=== PATIENT | female | born 1940 | race Caucasian/White ===

== ENCOUNTER 2016-11-12 06:53 | Inpatient (IN) ==
[2016-11-06 11:43] LABS: Appearance,Urine CLEAR; Bilirubin,Urine NEG (NEG); Color,Urine YELLOW; Glucose,Urine (UA) NEGATIVE (NEG); Leukocyte Esterase,Urine NEG /uL (NEG); Nitrate,Urine NEG (NEG); Protein,Urine NEG (NEG); Urine Blood NEG mg/dL (<0.03); Urobilinogen,Urine NEG (NEG)
[2016-11-06 11:57] LABS: Basophils # (Auto) 0 K/mcL (0.0-0.3); Basophils % (Auto) 0.8 % (0.0-2.0); Eosinophils # (Auto) 0.1 K/mcL (0.0-0.7); Eosinophils % (Auto) 1.9 % (0.0-7.0); Granulocytes % (Auto) 52.3 % (38.0-78.0); Lymphocytes # (Auto) 2.1 K/mcL (1.5-4.8); Lymphocytes % (Auto) 34.4 % (15.5-49.0); Mean Corpuscular HGB Conc 34.2 g/dL (31.0-36.0); Mean Corpuscular Hemoglobin 31.5 pg (26.0-34.0); Monocytes # (Auto) 0.6 K/mcL (0.1-0.9); Monocytes % (Auto) 10.6 % (1.0-12.0); Platelet Count 287 K/mcL (140-440); RBC 4.61 M/mcL (4.00-5.20); Red Cell Distribution Width 14.5 % (11.5-14.5)
[2016-11-06 12:06] LABS: Blood Urea Nitrogen 11 mg/dl (8-23)
[~2016-11-12 06:53] MED LIST: ACETAMINOPHEN 500 MG TABLET PO SCH; CELECOXIB 200 MG CAPSULE PO SCH; GABAPENTIN 300 MG CAPSULE PO SCH; ceFAZolin 1 GM VIAL IV SCH; oxyCODONE 10 MG TAB.ER.12H PO SCH
[2016-11-12] MEDS ORDERED: ONDANSETRON 4 MG/2 ML VIAL IV ONE (09:00)
[2016-11-12] MEDS ORDERED: PROPOFOL 200 MG/20 ML VIAL IV ONE (09:00)
[2016-11-12] MEDS ORDERED: ROPIVACAINE HCL/PF 30 ML VIAL IJ ONE (09:00)
[2016-11-12] MEDS ORDERED: PHENYLEPHRINE 10 MG/ML VIAL IV ONE (09:00)
[2016-11-12] MEDS ORDERED: ROCURONIUM 10 MG/ML ML IV ONE (09:00)
[2016-11-12] MEDS ORDERED: ESMOLOL 100 MG/10 ML VIAL IV ONE (09:00)
[2016-11-12] MEDS ORDERED: LIDOCAINE HCL/PF 100 MG/5 ML SYRINGE IV ONE (09:00)
[2016-11-12] MEDS ORDERED: fentaNYL 250 MCG/5 ML VIAL IV ONE (09:00)
[2016-11-12] MEDS ORDERED: TRANEXAMIC ACID 1,000 MG/10 ML VIAL IV ONE (09:00)
[2016-11-12] MEDS ORDERED: GLYCOPYRROLATE 0.2 MG/ML VIAL IV ONE (09:00)
[2016-11-12] MEDS ORDERED: NEOSTIGMINE 1 MG/ML VIAL IV ONE (09:00)
[2016-11-12] MEDS ORDERED: MAGNESIUM HYDROXIDE 30 ML ORAL.SUSP PO PRN (10:04)
[2016-11-12] MEDS ORDERED: ACETAMINOPHEN 325 MG TABLET PO PRN (10:04)
[2016-11-12] MEDS ORDERED: TRANEXAMIC ACID 1,000 MG/10 ML VIAL IV SCH (10:04)
[2016-11-12] MEDS ORDERED: HYDROmorphone 2 MG/ML SYRINGE IV PRN ×2 (10:04→10:18)
[2016-11-12] MEDS ORDERED: KETOROLAC 15 MG/ML VIAL IV PRN (10:04)
[2016-11-12] MEDS ORDERED: POLYETHYLENE GLYCOL 3350 17 GM PACKET PO PRN (10:04)
[2016-11-12] MEDS ORDERED: FLEETS ADULT ENEMA PR PRN (10:04)
[2016-11-12] MEDS ORDERED: ONDANSETRON 4 MG/2 ML VIAL IV PRN ×2 (10:04→10:18)
[2016-11-12] MEDS ORDERED: BENZOCAINE/MENTHOL 1 LOZENGE PO PRN (10:04)
[2016-11-12] MEDS ORDERED: BISACODYL 10 MG SUPP.RECT PR PRN (10:04)
--- NOTE | 2016-11-12 10:13 | Brief Operative Note ---
Date of procedure: 11/12/16 Pre-op diagnosis: left shoulder rca bicep tendonopathy Post-op diagnosis: same Procedure: left revers tsa and bicep tenodesis Grafts/Implants: Yes Anesthesia: GETA Complications Description: 11/12/16 10:13 none Surgeon: Alex Araiza Emergency Communications Dispatcher: Aaron Lobo Estimated blood loss (cc): 50 Specimens Removed/Pathology: none sent Condition: stable Disposition: PACU
[2016-11-12] MEDS ORDERED: LABETALOL HCL 20 MG/4 ML SYRINGE IV PRN (10:18)
[2016-11-12] MEDS ORDERED: IPRATROPIUM/ALBUTEROL 3 ML AMPUL.NEB NEB PRN (10:18)
[2016-11-12] MEDS ORDERED: fentaNYL 100 MCG/2 ML VIAL IV PRN (10:18)
[2016-11-12] MEDS ORDERED: KETOROLAC 15 MG/ML VIAL IV ONE (10:18)
[2016-11-12] MEDS ORDERED: MEPERIDINE 25 MG/ML SYRINGE IV PRN (10:18)
[2016-11-12] MEDS ORDERED: METHOCARBAMOL 1,000 MG/10 ML VIAL IV PRN (10:18)
--- NOTE | 2016-11-12 10:29 | Operative Note ---
DATE OF OPERATION: 11/12/2016 PREOPERATIVE DIAGNOSIS: Left shoulder rotator cuff arthropathy and biceps tendinopathy. POSTOPERATIVE DIAGNOSIS: Left shoulder rotator cuff arthropathy and biceps tendinopathy. PROCEDURE: Left reverse total shoulder arthroplasty, cementless components with a biceps tenodesis of the left shoulder. SURGEON: Alex Araiza MD EXECUTIVE DIRECTOR OF NURSING: Aaron Lobo PA-C ANESTHESIA: General LMA anesthesia. COMPLICATIONS: None. ESTIMATED BLOOD LOSS: About 50 mL IMPLANTS: A size 9 stem, 36 mm eccentric glenosphere with 6 mm of offset. COMPLICATIONS: None. DESCRIPTION OF PROCEDURE: Patient brought to the operating room and put to sleep with general LMA anesthesia. Once asleep, the patient had the left shoulder sterilely prepped and draped in the usual sterile fashion. Once we confirmed the operative site, preop antibiotics given and tranexamic acid given, we made a deltopectoral approach to the shoulder. Retracting the cephalic vein laterally, we exposed the anterior shoulder and released the anterior portion of the capsule and subscap. We dislocated the humeral head and made the neck cut at surgical neck region and released the remnants of the biceps tendon which had some tendinopathy. We subluxed the head posteriorly and exposed the glenoid. We performed a 360 degree capsulotomy around the glenoid and then reamed centrally with a 10 degree tilt. We placed the 36 reamer, placed the central screw with the metaglene with excellent fixation. We placed 3 additional screws 20, 20 and 28. We irrigated thoroughly and then placed 36 mm glenosphere which is 6 mm of offset and 2 mm of eccentricity. Once this was tapped into place and secured we irrigated thoroughly. We then broached and reamed up to the size 9, trialed a size 9 stem and a standard thickness poly. Once we countersunk the stem to give the perfect fit, this fit very nicely. We dislocated the humerus and irrigated thoroughly. We then implanted a size 9 stem with a standard thickness poly. This was reduced and irrigated thoroughly. We then irrigated the soft tissues, closed the deltopectoral interval with #2 Vicryl and closed the skin with 2-0 Vicryl and adhesive closure. The patient tolerated this well without complication. Donjoy sling was fitted and given. LIZA:[email or web address] Job ID: [id number] Doc ID: [id number] Alex Araiza MD
[2016-11-12] MEDS ORDERED: LACTATED RINGERS 1,000 ML IV SCH (10:30)
[2016-11-12] MEDS ORDERED: GENTAMICIN SULFATE 800 MG/20 ML VIAL IR ONE (10:47)
--- NOTE | 2016-11-12 11:09 | XRay Report ---
CLINICAL INFORMATION: Postsurgical follow-up TECHNIQUE: AP and Y view of the left shoulder COMPARISON: Preoperative evaluation dated 11/14/2015 FINDINGS: Status post left reverse shoulder arthroplasty. Previous resection of the distal left clavicle. Normal postsurgical alignment. IMPRESSION: Left reverse shoulder arthroplasty. Interpreted and Authenticated by: Dhruv Hines 11/12/16
[2016-11-12] MEDS ORDERED: ERGOCALCIFEROL (VITAMIN D2) 50,000 UNIT CAPSULE PO SCH (12:00)
[2016-11-12] MEDS: 0.45 % SODIUM CHLORIDE 1,000 ML IV SCH ×2 (13:00→23:14)
[2016-11-12] MEDS ORDERED: PROMETHAZINE 25 MG/ML VIAL IV PRN (15:18)
[2016-11-12] MEDS: 0.9 % SODIUM CHLORIDE 10 ML SYRINGE IV SCH ×2 (15:30→23:14)
[2016-11-12] MEDS: GABAPENTIN 300 MG CAPSULE PO SCH ×3 (15:34→20:33)
[2016-11-12] MEDS: ceFAZolin 1 GM VIAL IV SCH (16:48)
[2016-11-12] MEDS: DOCUSATE SODIUM 100 MG CAPSULE PO SCH (20:32)
[2016-11-12] MEDS ORDERED: TEMAZEPAM 15 MG CAPSULE PO PRN (21:00)
[2016-11-12] MEDS ORDERED: SENNOSIDES 1 TABLET PO SCH (21:00)
[2016-11-13] MEDS: HYDROcodone/APAP 10/325MG TABLET PO PRN ×3 (01:18→09:27)
[2016-11-13] MEDS: ceFAZolin 1 GM VIAL IV SCH (01:18)
[2016-11-13] MEDS: 0.9 % SODIUM CHLORIDE 10 ML SYRINGE IV SCH (05:22)
[2016-11-13] MEDS: 0.45 % SODIUM CHLORIDE 1,000 ML IV SCH (05:23)
[2016-11-13] MEDS ORDERED: LEVOTHYROXINE SODIUM 112 MCG TABLET PO SCH (07:30)
--- NOTE | 2016-11-13 07:34 | Orthopedic Progress Note ---
Subjective Patient information: Note initiated : 11/13/16 at 7:33 am Service Date, if different from initiated Date: [] Patient: Arleth Tran 76 y/o F admitted on 11/12/16 for Left Reverse Total Shoulder Arthroplasty with. Chief Complaint: [Pt is stable this morning on post operative day 1 without any significant concerns or complaints. Patients vital signs have remained stable. Patients dressing is dry and exhibits a grossly intact neurovascular and neuromotor exam. Patients 10 point ROS is otherwise negative. ] Objective Vital signs: Vital Signs Temp Pulse Resp BP BP Pulse Ox 11/13/16 04:00 98.8 F 79 20 118/75 91 11/13/16 00:00 98.3 F 79 20 117/74 92 11/12/16 20:00 96 11/12/16 19:54 97.3 F L 60 20 128/66 96 11/12/16 13:15 62 164/83 95 11/12/16 13:00 90 11/12/16 12:12 60 148/71 93 11/12/16 11:59 60 130/71 93 11/12/16 11:54 58 L 145/70 93 11/12/16 11:42 56 L 168/93 93 11/12/16 11:38 96.6 F L 57 L 168/95 95 11/12/16 11:20 96.7 F L 56 L 17 152/78 96 11/12/16 11:16 96.6 F L 63 18 152/78 99 11/12/16 11:05 63 18 152/78 99 11/12/16 10:48 71 15 161/77 99 11/12/16 10:35 96.6 F L 81 18 191/79 95 11/12/16 07:36 98.6 F 74 16 169/92 96 Intake and Output 11/12/16 11/13/16 11/13/16 21:59 05:59 13:59 Intake Total 600 / 600 150 / 150 Output Total 1275 / 1275 1575 / 1575 250 / 250 Balance -675 / -675 -1425 / -1425 -250 / -250 Intake: Oral 600 / 600 150 / 150 Output: Void Amount 1275 / 1275 1575 / 1575 250 / 250 Other: Weight 207 lb Intake & Output: Intake & Output 11/12/16 11/13/16 11/13/16 21:59 05:59 13:59 Intake Total 600 / 600 150 / 150 Output Total 1275 / 1275 1575 / 1575 250 / 250 Balance -675 / -675 -1425 / -1425 -250 / -250 Weight 207 lb Intake: Oral 600 / 600 150 / 150 Output: Void Amount 1275 / 1275 1575 / 1575 250 / 250 Incision clean and dry: Yes Dressing: Yes clean, Yes dry Weight bearing status: full Neurological exam IM: Yes motor sensory intact, Yes neurovascular intact Extremities exam IM: Yes neurovascular intact - Labs CBC & BMP: 11/06/16 10:48 11/06/16 10:48 Labs: 11/06/16 10:48 Hgb 14.5 Hct 42.4 Assessment and Plan (1) Hx of total shoulder replacement Patient has been educated regarding wound care and dressings, follow up recommendations, and medication use. We will f/u with the patient within 2-3 weeks for wound check. Status: Acute
--- NOTE | 2016-11-13 07:36 | Discharge Summary ---
Ortho Discharge - TSA - Patient Instructions Diet: Regular Diet Activity: activity as tolerated, weight bearing as tolerated Total Shoulder Protocol: Leave immobilizer in place except for bathing and ROM. Abduction pillow. Continue to wear sling until seen by physician. Codman Pendulum : These exercises use momentum produced by your body to move your shoulder joint. Bend your knees and shift your weight to your front leg, then back, allowing your arm to swing in the same directions. Using the same technique, alternately shift your weight between your right and left legs, allowing your arm to swing from side to side. These exercises are also performed in counterclockwise and clockwise circular motions. Typically these exercises are performed several times per day, for a set number repetitions or minutes, such as 20 times in a row or 5 minutes at a time. Dressing Care: May shower in 2 days Patient Education: Shoulder Arthroscopy (DC) Additional Instructions: Do the exercises at home that physical therapy gave you. Take your prescription, photo ID, insurance cards, and current medication list with you to your first physical therapy appointment. 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 Weight bearing as tolerated. Keep incision clean and dry. If you have Dermabond (a dressing with a mesh-like appearance), leave open to air. You may start showering on post op day #2. The Dermabond dressing can get wet, do not scrub dressing. Pat dry. To avoid constipation while taking any narcotic pain medication, take an over the counter stool softener/laxative. Ice will help with pain and swelling. Call your physician for fevers above 100.5 or pain not controlled by medication. Your prescriptions are with your discharge information. Some medications were electronically transmitted to your pharmacy of choice. - Problem Maintenance (1) Hx of total shoulder replacement Status: Acute - Follow Up Plan Follow Up Appointments: Alex Araiza MD [Physician] - 11/27/16 1:40 pm Disposition: Home, Self-Care Prognosis: Good Rehab Potential: Good I certify that the patient requires SNF services: No Overall status at discharge: patient is progressing back to baseline - Orders For Discharge Prescriptions: Docusate Sodium [Colace] 100 mg PO BID #60 capsule HYDROcodone/APAP 10/325MG [Reva 10/325Mg] 1 - 2 tab PO Q4HP PRN #75 tablet PRN Reason: Pain
[2016-11-13] MEDS ORDERED: MULTIVIT,THER IRON,CA,FA & MIN 1 TABLET PO SCH (09:00)
[2016-11-13] MEDS: DOCUSATE SODIUM 100 MG CAPSULE PO SCH (09:18)
[2016-11-13] MEDS: GABAPENTIN 300 MG CAPSULE PO SCH (09:19)
== END 2016-11-13 11:00 | disposition home or self-care (01) | DRG 483 ==
LOC: MEDSUR 06:53
PROVIDERS: ADMIT Orthopaedic Surgery; ATTEND Orthopaedic Surgery

== ENCOUNTER 2017-07-22 06:27 | Inpatient (IN) ==
[2017-07-17 11:52] LABS: Appearance,Urine CLEAR; Bilirubin,Urine NEG (NEG); Color,Urine YELLOW; Glucose,Urine (UA) NEGATIVE (NEG); Leukocyte Esterase,Urine NEG /uL (NEG); Nitrate,Urine NEG (NEG); Protein,Urine NEG (NEG); Specific Gravity,Urine 1.017 (1.000-1.035); Urine Blood NEG mg/dL (<0.03); Urobilinogen,Urine NEG (NEG)
[2017-07-17 12:18] LABS: Blood Urea Nitrogen 17 mg/dl (8-23)
[2017-07-17 12:42] LABS: Basophils # (Auto) 0 K/mcL (0.0-0.3); Basophils % (Auto) 0.5 % (0.0-2.0); Eosinophils # (Auto) 0.2 K/mcL (0.0-0.7); Eosinophils % (Auto) 2.6 % (0.0-7.0); Granulocytes % (Auto) 58.4 % (38.0-78.0); Lymphocytes # (Auto) 2.1 K/mcL (1.5-4.8); Mean Corpuscular HGB Conc 33.7 g/dL (31.0-36.0); Monocytes # (Auto) 0.6 K/mcL (0.1-0.9); Monocytes % (Auto) 8.5 % (1.0-12.0); Platelet Count 310 K/mcL (140-440); RBC 4.86 M/mcL (4.00-5.20); Red Cell Distribution Width 13.6 % (11.5-14.5)
[~2017-07-22 06:27] MED LIST changes: -GABAPENTIN 300 MG CAPSULE PO SCH; +PREGABALIN 75 MG CAPSULE PO SCH
[2017-07-22] MEDS ORDERED: KETAMINE 100 MG/ML ML IV ONE (08:15)
[2017-07-22] MEDS ORDERED: PHENYLEPHRINE 10 MG/ML VIAL IV ONE (08:15)
[2017-07-22] MEDS ORDERED: SUCCINYLCHOLINE 20 MG/ML ML IV ONE (08:15)
[2017-07-22] MEDS ORDERED: fentaNYL 100 MCG/2 ML VIAL IV ONE (08:15)
[2017-07-22] MEDS ORDERED: MIDAZOLAM 2 MG/2 ML VIAL IV ONE (08:15)
[2017-07-22] MEDS ORDERED: LIDOCAINE HCL/PF 100 MG/5 ML SYRINGE IV ONE (08:15)
[2017-07-22] MEDS ORDERED: TRANEXAMIC ACID 1,000 MG/10 ML VIAL IV ONE ×4 (08:15→10:57)
[2017-07-22] MEDS ORDERED: GLYCOPYRROLATE 0.2 MG/ML VIAL IV ONE (08:15)
[2017-07-22] MEDS ORDERED: BUPIVACAINE W/EPI 0.5% 50 ML VIAL IJ ONE (08:15)
[2017-07-22] MEDS ORDERED: PROPOFOL 200 MG/20 ML VIAL IV ONE (08:15)
[2017-07-22] MEDS ORDERED: LIDOCAINE W/EPI 2% 20 ML VIAL INJ ONE (08:15)
[2017-07-22] MEDS ORDERED: ONDANSETRON 4 MG/2 ML VIAL IV ONE (08:15)
[2017-07-22] MEDS ORDERED: GENTAMICIN SULFATE 800 MG/20 ML VIAL IR ONE (09:00)
[2017-07-22] MEDS ORDERED: METHOCARBAMOL 1,000 MG/10 ML VIAL IV PRN (09:04)
[2017-07-22] MEDS ORDERED: PROMETHAZINE 25 MG/ML VIAL IV PRN (09:04)
[2017-07-22] MEDS ORDERED: ONDANSETRON 4 MG/2 ML VIAL IV PRN ×2 (09:04→10:49)
[2017-07-22] MEDS ORDERED: fentaNYL 100 MCG/2 ML VIAL IV PRN (09:04)
[2017-07-22] MEDS ORDERED: MEPERIDINE 25 MG/ML SYRINGE IV PRN (09:04)
[2017-07-22] MEDS ORDERED: IPRATROPIUM/ALBUTEROL 3 ML AMPUL.NEB NEB PRN (09:04)
[2017-07-22] MEDS ORDERED: LACTATED RINGERS 1,000 ML IV SCH (09:15)
--- NOTE | 2017-07-22 09:21 | Brief Operative Note ---
Date of procedure: 07/22/17 Pre-op diagnosis: right shoulder rca and bicep tendonopathy Post-op diagnosis: same Procedure: right reverse tsa and bicep tenodesis Grafts/Implants: Yes Anesthesia: GETA Complications Description: 07/22/17 09:21 none Surgeon: Alex Araiza Recordist: Aaron Lobo Estimated blood loss (cc): 100 Specimens Removed/Pathology: none sent Condition: stable Disposition: PACU
--- NOTE | 2017-07-22 10:05 | Operative Note ---
DATE OF OPERATION: 07/22/2017 PREOPERATIVE DIAGNOSES: Right shoulder rotator cuff arthropathy and biceps tendinopathy. POSTOPERATIVE DIAGNOSES: Right shoulder rotator cuff arthropathy and biceps tendinopathy. PROCEDURE: Right reverse total shoulder with biceps tenodesis. SURGEON: Alex Araiza M.D. TAX ACCOUNTING MANAGER: Aaron Lobo PA-C. ANESTHESIA: General LMA anesthesia. ESTIMATED BLOOD LOSS: 50 mL to 100 mL. DESCRIPTION OF PROCEDURE: The patient was brought to the operating room and put to sleep with general LMA anesthesia. Once asleep, the patient had the right shoulder sterilely prepped and draped in the usual sterile fashion and sat in a beach chair position. Time out was performed. We confirmed this with a time out, initials, consent form and x-rays. Once confirmed, preop antibiotics and tranexamic acid had been given. Once done, we then made a deltopectoral approach from the front of the shoulder, dissected through the deltopectoral interval and identified the subscap and conjoined tendon and retracted this medially. We dislocated the humeral head and made our neck cut at 30 degrees of retroversion. Once done, the bony fragment was removed. A protective plate was placed, and we subluxed the humeral shaft posteriorly and inferiorly with a retractor. Once done, we then released the capsule 360 degrees around the shoulder, removed the remnants of the biceps tendon, placed a pin centrally in the glenoid and 10 degrees of inclination. We then reamed to the size 36, placed a metaglene with a 24 mm central screw. Then 16, 16 and 30 mm screws were also placed to lock this into place. A 36 mm glenosphere was placed with 2 mm of offset. We irrigated thoroughly and then prepared the humerus. It was broached up to a size 9 stem. We trialed the 9 with a 4 mm poly or standard poly. This fit very nicely. We implanted a 9 stem with a 4 poly, 36 mm liner, and this was reduced. Excellent stability, full range of motion achieved. We irrigated thoroughly. We did not re-repair the subscap because of restriction of motion it would have caused. Biceps tenodesis to the pectoralis major was performed with two #2 Ethibond stitches through the biceps. We irrigated thoroughly and repaired the cephalic vein with 2-0 Vicryl which was tied off for bleeding. We then closed the skin with 2-0 Vicryl and glue was placed on the skin. This seemed to give complete seal. We placed a sterile bandage. A Donjoy sling was fitted and given at the end of the case. The patient tolerated this well. There was no complication. RBH:jluis Job ID: [id number] Doc ID: [id number] Alex Araiza MD
[2017-07-22] MEDS ORDERED: TEMAZEPAM 15 MG CAPSULE PO PRN (10:49)
[2017-07-22] MEDS ORDERED: MAGNESIUM HYDROXIDE 30 ML ORAL.SUSP PO PRN (10:49)
[2017-07-22] MEDS ORDERED: ACETAMINOPHEN 325 MG TABLET PO PRN (10:49)
[2017-07-22] MEDS ORDERED: POLYETHYLENE GLYCOL 3350 17 GM PACKET PO PRN (10:49)
[2017-07-22] MEDS ORDERED: HYDROcodone/APAP 10/325MG TABLET PO PRN (10:49)
[2017-07-22] MEDS ORDERED: FLEETS ADULT ENEMA PR PRN (10:49)
[2017-07-22] MEDS ORDERED: KETOROLAC 15 MG/ML VIAL IV PRN (10:49)
[2017-07-22] MEDS ORDERED: HYDROmorphone 2 MG/ML SYRINGE IV PRN (10:49)
[2017-07-22] MEDS ORDERED: BISACODYL 10 MG SUPP.RECT PR PRN (10:49)
[2017-07-22] MEDS: 0.45 % SODIUM CHLORIDE 1,000 ML IV SCH ×2 (11:04→21:16)
--- NOTE | 2017-07-22 11:54 | XRay Report ---
CLINICAL INFORMATION: Post-OP Total Shoulder COMPARISON: None. FINDINGS: Right total shoulder prostheses is anatomically aligned. No osseous abnormality. Soft tissues swelling seen as expected. IMPRESSION: Negative Interpreted and Authenticated by: Dhruv Boo 07/22/17
[2017-07-22] MEDS: 0.9 % SODIUM CHLORIDE 10 ML SYRINGE IV SCH ×2 (13:24→21:16)
[2017-07-22] MEDS: ceFAZolin 1 GM VIAL IV SCH (16:34)
[2017-07-22] MEDS: BENZOCAINE/MENTHOL 1 LOZENGE PO PRN ×2 (19:49→22:41)
[2017-07-22] MEDS: DOCUSATE SODIUM 100 MG CAPSULE PO SCH (20:20)
[2017-07-22] MEDS ORDERED: SENNOSIDES 1 TABLET PO SCH (21:00)
[2017-07-23] MEDS: ceFAZolin 1 GM VIAL IV SCH (00:07)
[2017-07-23] MEDS: 0.9 % SODIUM CHLORIDE 10 ML SYRINGE IV SCH (04:57)
[2017-07-23] MEDS: 0.45 % SODIUM CHLORIDE 1,000 ML IV SCH (07:05)
[2017-07-23] MEDS ORDERED: LEVOTHYROXINE SODIUM 112 MCG TABLET PO SCH (07:30)
--- NOTE | 2017-07-23 07:30 | Orthopedic Progress Note ---
Subjective Patient information: Note initiated : 07/23/17 at 7:29 am Service Date, if different from initiated Date: [] Patient: Arleth Tran 76 y/o F admitted on 07/22/17 for Right Reverse Total Shoulder Arthroplasty with . Chief Complaint: [Pt is stable this morning on post operative day 1 without any significant concerns or complaints. Patients vital signs have remained stable. Patients dressing is dry and is grossly instact from a neurovascular and motor standpoint. Patients 10 point ROS is otherwise negative. ] Objective Vital signs: Vital Signs Temp Pulse Resp BP BP Pulse Ox 07/23/17 06:54 98.5 F 18 148/69 92 07/23/17 03:05 97.8 F 93 H 20 150/67 95 07/23/17 00:00 97.9 F 71 22 165/79 92 07/22/17 19:51 98.4 F 61 24 H 163/79 94 07/22/17 15:39 97.3 F 18 128/64 95 07/22/17 13:45 130/63 97 07/22/17 12:45 154/86 95 07/22/17 12:15 173/70 93 07/22/17 11:45 56 L 20 159/62 94 07/22/17 11:30 48 L 20 157/75 94 07/22/17 11:15 64 16 157/80 94 07/22/17 11:00 97.4 F 63 20 157/65 94 07/22/17 10:43 97.8 F 13 134/59 95 07/22/17 10:25 13 137/52 95 07/22/17 10:10 15 143/43 143/43 96 07/22/17 09:55 13 132/56 96 07/22/17 09:38 97.7 F 14 138/66 95 Intake and Output 07/22/17 07/23/17 07/23/17 21:59 05:59 13:59 Intake Total 350 / 350 Output Total 1000 / 1000 1150 / 1150 Balance -1000 / -1000 -800 / -800 Intake: Oral 350 / 350 Output: Void Amount 1000 / 1000 1150 / 1150 Other: Weight 207 lb 8 oz Intake & Output: Intake & Output 07/22/17 07/23/17 07/23/17 21:59 05:59 13:59 Intake Total 350 / 350 Output Total 1000 / 1000 1150 / 1150 Balance -1000 / -1000 -800 / -800 Weight 207 lb 8 oz Intake: Oral 350 / 350 Output: Void Amount 1000 / 1000 1150 / 1150 Incision: Yes healing Incision clean and dry: Yes Dressing: Yes clean, Yes dry Weight bearing status: full Neurological exam IM: Yes motor sensory intact, Yes neurovascular intact Extremities exam IM: Yes neurovascular intact - Labs CBC & BMP: 07/17/17 10:18 07/17/17 10:18 Labs: Orthopedic Labs 07/17/17 10:18 PT 13.0 INR 1.0 APTT 28 07/17/17 10:18 Hgb 14.6 Hct 43.3 Assessment and Plan (1) Hx of total shoulder replacement The patient has been educated regarding dressing care, Physical Therapy recommendations, home exercises, restrictions, and follow up appointments. The patient has had all necessary DME prescribed. The patient has remained stable during their hospital course. The patient was discharge with a stable exam. Leave Dermabond patch intact until followup Status: Chronic
--- NOTE | 2017-07-23 07:33 | Discharge Summary ---
Ortho Discharge - TSA - Patient Instructions Diet: Regular Diet Activity: activity as tolerated, weight bearing as tolerated Total Shoulder Protocol: Leave immobilizer in place except for bathing and ROM. Abduction pillow. Continue to wear sling until seen by physician. Codman Pendulum : These exercises use momentum produced by your body to move your shoulder joint. Bend your knees and shift your weight to your front leg, then back, allowing your arm to swing in the same directions. Using the same technique, alternately shift your weight between your right and left legs, allowing your arm to swing from side to side. These exercises are also performed in counterclockwise and clockwise circular motions. Typically these exercises are performed several times per day, for a set number repetitions or minutes, such as 20 times in a row or 5 minutes at a time. Dressing Care: May shower in 2 days - Problem Maintenance (1) Hx of total shoulder replacement Status: Chronic - Follow Up Plan Disposition: Home, Self-Care Prognosis: Good Rehab Potential: Good I certify that the patient requires SNF services: No Overall status at discharge: patient is progressing back to baseline - Orders For Discharge Prescriptions: Docusate Sodium [Colace] 100 mg PO BID #60 cap HYDROcodone/APAP 10/325MG [Gardena 10/325Mg] 1 - 2 tab PO Q4HP PRN #75 tab PRN Reason: Pain Level 3-6
[2017-07-23] MEDS: DOCUSATE SODIUM 100 MG CAPSULE PO SCH (08:46)
[2017-07-23] MEDS ORDERED: IMIPRAMINE 25 MG TABLET PO SCH (09:00)
[2017-07-23] MEDS ORDERED: LISINOPRIL 5 MG TABLET PO SCH (09:00)
== END 2017-07-23 09:40 | disposition home or self-care (01) | DRG 508 ==
LOC: MEDSUR 06:27
PROVIDERS: ADMIT Orthopaedic Surgery; ATTEND Orthopaedic Surgery

== ENCOUNTER 2018-09-22 08:48 | Inpatient (IN) ==
[2018-09-16 14:02] LABS: Appearance,Urine CLEAR; Bilirubin,Urine NEG (NEG); Color,Urine YELLOW; Glucose,Urine (UA) NEGATIVE (NEG); Leukocyte Esterase,Urine NEG /uL (NEG); Protein,Urine NEG (NEG); Specific Gravity,Urine 1.019 (1.000-1.035); Urine Blood NEG mg/dL (<0.03); Urobilinogen,Urine NEG (NEG)
[2018-09-16 14:50] LABS: Basophils # (Auto) 0 K/mcL (0.0-0.3); Basophils % (Auto) 0.6 % (0.0-2.0); Eosinophils # (Auto) 0.4 K/mcL (0.0-0.7); Eosinophils % (Auto) 4.5 % (0.0-7.0); Granulocytes % (Auto) 61.7 % (38.0-78.0); Lymphocytes # (Auto) 1.9 K/mcL (1.5-4.8); Lymphocytes % (Auto) 24.2 % (15.5-49.0); Mean Cell Volume 87.5 fL (80.0-100.0); Monocytes # (Auto) 0.7 K/mcL (0.1-0.9); Platelet Count 295 K/mcL (140-440); RBC 4.82 M/mcL (4.00-5.20); Red Cell Distribution Width 13.8 % (11.5-14.5)
[2018-09-16 14:58] LABS: Blood Urea Nitrogen 18 mg/dl (8-23)
[2018-09-16 15:24] LABS: Estimated Average Glucose(eAG) 120 mg/dL; Hemoglobin A1C 5.8 % HGB (4.0-6.0)
[~2018-09-22 08:48] MED LIST changes: +0.9 % SODIUM CHLORIDE 9 ML, KETOROLAC 30 MG, ROPIVACAINE HCL/PF 49.5 ML, EPINEPHrine 0.... IJ SCH
[2018-09-22] MEDS ORDERED: GENTAMICIN SULFATE 800 MG/20 ML VIAL IR ONE (10:07)
[2018-09-22] MEDS ORDERED: ONDANSETRON 4 MG/2 ML VIAL IV ONE (11:10)
[2018-09-22] MEDS ORDERED: DEXAMETHASONE 10 MG/ML VIAL IV ONE (11:10)
[2018-09-22] MEDS ORDERED: PROPOFOL 200 MG/20 ML VIAL IV ONE (11:10)
[2018-09-22] MEDS ORDERED: ROPIVACAINE HCL/PF 20 ML VIAL IJ ONE (11:10)
[2018-09-22] MEDS ORDERED: KETAMINE 100 MG/ML ML IV ONE (11:10)
[2018-09-22] MEDS ORDERED: LIDOCAINE HCL/PF 100 MG/5 ML SYRINGE IV ONE (11:10)
[2018-09-22] MEDS ORDERED: ePHEDrine 50 MG/ML AMPUL IV ONE (11:10)
[2018-09-22] MEDS ORDERED: GLYCOPYRROLATE 0.2 MG/ML VIAL IV ONE (11:10)
[2018-09-22] MEDS ORDERED: TRANEXAMIC ACID 1,000 MG/10 ML VIAL IV ONE (11:10)
[2018-09-22] MEDS ORDERED: MIDAZOLAM 5 MG/5 ML VIAL IV ONE (11:10)
[2018-09-22] MEDS ORDERED: PHENYLEPHRINE 10 MG/ML VIAL IV ONE (11:10)
[2018-09-22] MEDS ORDERED: fentaNYL 100 MCG/2 ML VIAL IV PRN (11:33)
[2018-09-22] MEDS ORDERED: IPRATROPIUM/ALBUTEROL 3 ML AMPUL.NEB NEB PRN (11:33)
[2018-09-22] MEDS ORDERED: FLUMAZENIL 0.1 MG/ML ML IV PRN (11:33)
[2018-09-22] MEDS ORDERED: ONDANSETRON 4 MG/2 ML VIAL IV PRN ×2 (11:33→12:34)
[2018-09-22] MEDS ORDERED: KETOROLAC 15 MG/ML VIAL IV PRN (11:33)
[2018-09-22] MEDS ORDERED: METHOCARBAMOL 1,000 MG/10 ML VIAL IV PRN (11:33)
[2018-09-22] MEDS ORDERED: NALOXONE HCL 0.4 MG/ML VIAL IV PRN (11:33)
[2018-09-22] MEDS ORDERED: LACTATED RINGERS 250 ML IV PRN (11:33)
[2018-09-22] MEDS ORDERED: MEPERIDINE 25 MG/ML SYRINGE IV PRN (11:33)
[2018-09-22] MEDS ORDERED: BENZOCAINE/MENTHOL 1 LOZENGE PO PRN (11:33)
[2018-09-22] MEDS ORDERED: LACTATED RINGERS 1,000 ML IV SCH (11:45)
[2018-09-22] MEDS ORDERED: BISACODYL 10 MG SUPP.RECT PR PRN (12:34)
[2018-09-22] MEDS ORDERED: TRANEXAMIC ACID 1,000 MG/10 ML VIAL IV SCH (12:34)
[2018-09-22] MEDS ORDERED: POLYETHYLENE GLYCOL 3350 17 GM PACKET PO PRN (12:34)
[2018-09-22] MEDS ORDERED: FLEETS ADULT ENEMA PR PRN (12:34)
[2018-09-22] MEDS ORDERED: HYDROmorphone 2 MG/ML VIAL IV PRN (12:34)
[2018-09-22] MEDS ORDERED: ACETAMINOPHEN 325 MG TABLET PO PRN (12:34)
[2018-09-22] MEDS ORDERED: MAGNESIUM HYDROXIDE 30 ML ORAL.SUSP PO PRN (12:34)
--- NOTE | 2018-09-22 12:38 | Brief Operative Note ---
Date of procedure: 09/22/18 Pre-op diagnosis: right knee djd severe Post-op diagnosis: same Procedure: right tka cemented Grafts/Implants: Yes Anesthesia: GETA Complications: none Surgeon: Alex Araiza Dinkey Engine Firer/Fireman: Parth Pain[employer] Estimated blood loss (cc): 20 Tourniquet Time (Minutes): 40 Specimens Removed/Pathology: none sent Condition: stable Disposition: PACU
[2018-09-22] MEDS ORDERED: IBANDRONATE SODIUM 150 MG PO SCH (12:45)
--- NOTE | 2018-09-22 12:55 | Operative Note ---
DATE OF OPERATION: 09/22/2018 PREOPERATIVE DIAGNOSIS: Right knee degenerative arthritis. POSTOPERATIVE DIAGNOSIS: Right knee degenerative arthritis. PROCEDURE: Right total knee arthroplasty using ODC. COMPLICATIONS: None. IMPLANTS: Size 3 tibia, size 3 femoral component with 31 mm patellar button. These were cemented components. SURGEON: Alex Araiza MD AERODYNAMIC CONSULTANT: Parth Pain[employer] PA-C ANESTHESIA: General LMA anesthesia. ESTIMATED BLOOD LOSS: About 20 mL TOURNIQUET TIME: 40 minutes at 250 pounds of pressure. DESCRIPTION OF PROCEDURE: The patient was brought to the operating room and put to sleep with general LMA anesthesia. A timeout had been performed confirming the operative site to be the right leg. Once confirmed, we then sterilely prepped and draped the right lower extremity. We exsanguinated the leg and inflated to 250 pounds of pressure. We made a midline incision, mid vastus approach. We exposed the joint and showed severe arthritis of the patellofemoral joint and the medial compartment. At this point, it noted about 10 degrees of flexion contracture. We proceeded with intramedullary guide rods and made our femoral distal cut at 9 mm of thickness and 5 degrees of valgus, sized the knee to a size 3 and made our anterior and posterior and chamfer cuts. Tibia was also cut at 8 mm below the least involved area which was cut. We released the ACL and removed the remnants of the meniscus and all spurs were removed. We then tapped into place the tibial baseplate. Once done, then the femoral component was trialled with a box cut. These fit very well with a 9 mm poly and then we were able to resurface the patella, measured initially worn patella down to 18 mm. This was cut to 12 mm and trialed a size 31 mm patellar button. This fit very nicely. We then cemented into place of the above-mentioned sizes with a posterior stabilized design. This gave good rollback, good motion, equally balanced in flexion and extension throughout the arc of motion. We irrigated thoroughly and kept the knee at 45 degrees until cement was dry, closed the mid vastus approach with #1 Stratafix x2, closed the skin with 2-0 Vicryl and winifred. The patient tolerated this well. There was no complication. Tourniquet deflated from 250 pounds of pressure at approximately 40 minutes. LIZA:nino Job ID: [id number] Doc ID: [id number] Alex Araiza MD
--- NOTE | 2018-09-22 13:35 | XRay Report ---
CLINICAL INFORMATION: Postsurgical follow-up TECHNIQUE: Portable AP and crosstable lateral right knee COMPARISON: None. FINDINGS: Status post right total knee arthroplasty. Femoral and tibial components are in anatomic positions. There is mild postsurgical soft tissue and intra-articular gas. There are skin winifred anteriorly IMPRESSION: Status post right total knee arthroplasty Interpreted and Authenticated by: Dhruv Hines 09/22/18
[2018-09-22] MEDS: 0.45 % SODIUM CHLORIDE 1,000 ML IV SCH ×2 (13:38→22:23)
[2018-09-22] MEDS: 0.9 % SODIUM CHLORIDE 10 ML SYRINGE IV SCH ×2 (13:40→20:07)
[2018-09-22] MEDS: oxyCODONE/APAP 5/325MG TABLET PO PRN ×2 (16:17→21:38)
[2018-09-22] MEDS: metFORMIN 500 MG TABLET PO SCH (17:06)
[2018-09-22] MEDS: KETOROLAC 15 MG/ML VIAL IV SCH (17:06)
[2018-09-22] MEDS: ASPIRIN 325 MG ENTERIC COATED TABLET PO SCH (20:04)
[2018-09-22] MEDS: BENZOCAINE/MENTHOL 1 LOZENGE PO PRN ×2 (20:04→22:16)
[2018-09-22] MEDS: ceFAZolin 1 GM VIAL IV SCH (20:04)
[2018-09-22] MEDS: DOCUSATE SODIUM 100 MG CAPSULE PO SCH (20:04)
[2018-09-22] MEDS ORDERED: SENNOSIDES 1 TABLET PO SCH (21:00)
[2018-09-22] MEDS ORDERED: GABAPENTIN 100 MG CAPSULE PO SCH (21:00)
[2018-09-22] MEDS ORDERED: TEMAZEPAM 15 MG CAPSULE PO PRN (21:00)
[2018-09-23] MEDS: KETOROLAC 15 MG/ML VIAL IV SCH ×2 (00:20→05:45)
[2018-09-23] MEDS: 0.45 % SODIUM CHLORIDE 1,000 ML IV SCH ×2 (00:20→09:41)
[2018-09-23] MEDS: oxyCODONE/APAP 5/325MG TABLET PO PRN ×3 (01:45→11:16)
[2018-09-23] MEDS: 0.9 % SODIUM CHLORIDE 10 ML SYRINGE IV SCH (04:30)
[2018-09-23] MEDS: ceFAZolin 1 GM VIAL IV SCH (04:30)
[2018-09-23] MEDS: DOCUSATE SODIUM 100 MG CAPSULE PO SCH (07:08)
[2018-09-23] MEDS: metFORMIN 500 MG TABLET PO SCH (07:08)
[2018-09-23] MEDS: ASPIRIN 325 MG ENTERIC COATED TABLET PO SCH (07:08)
[2018-09-23] MEDS: BENZOCAINE/MENTHOL 1 LOZENGE PO PRN (07:11)
[2018-09-23] MEDS ORDERED: LEVOTHYROXINE SODIUM 112 MCG TABLET PO SCH (07:30)
--- NOTE | 2018-09-23 07:55 | Orthopedic Progress Note ---
Subjective Patient information: Note initiated : 09/23/18 at 7:54 am Service Date, if different from initiated Date: [] Patient: Arleth Tran 77 y/o F admitted on 09/22/18 for Right Total Knee Arthroplasty. Chief Complaint: [minimal paind and nvi] Objective Vital signs: Vital Signs Temp Pulse Resp BP Pulse Ox 09/23/18 04:36 97.5 F 76 16 137/66 90 09/22/18 23:59 98.2 F 60 16 140/68 91 09/22/18 19:52 16 94 09/22/18 19:24 97.9 F 57 L 16 127/65 91 09/22/18 17:43 94 09/22/18 14:45 153/91 93 09/22/18 14:29 152/85 89 L 09/22/18 14:14 124/65 89 L 09/22/18 14:04 92 09/22/18 13:59 154/93 90 09/22/18 13:40 75 16 149/82 92 09/22/18 13:30 97.6 F 67 11 L 152/82 98 09/22/18 13:15 97.8 F 71 17 151/83 96 09/22/18 13:00 97.5 F 86 18 152/83 100 09/22/18 12:56 88 22 161/78 100 09/22/18 12:51 93 H 20 146/86 100 09/22/18 12:45 97.5 F 100 H 18 141/77 93 09/22/18 08:48 98.2 F 80 20 169/82 92 Intake and Output 09/22/18 09/23/18 09/23/18 21:59 05:59 13:59 Intake Total 1040 1800 Output Total 602 1300 Balance 438 500 Intake: IV 1000 Sodium Chloride 0.45% 1,000 ml 1000 @ 100 mls/hr IV .Q10H RADHA Rx#: [id number] Oral 1040 800 Output: Void Amount 600 1300 # of times incontinent of urine 2 Other: Meal Dinner Percent of Meal Consumed 75% Urine Appearance Clear Clear Urine Color Straw Straw Urine Odor Normal Normal # Voids 1 Weight 208 lb Intake & Output: Intake & Output 09/22/18 09/23/18 09/23/18 21:59 05:59 13:59 Intake Total 1040 1800 Output Total 602 1300 Balance 438 500 Weight 208 lb Intake: IV 1000 Sodium Chloride 0.45% 1,000 ml 1000 @ 100 mls/hr IV .Q10H RADHA Rx#: [id number] Oral 1040 800 Output: Void Amount 600 1300 # of times incontinent of urine 2 Other: Meal Dinner Percent of Meal Consumed 75% Urine Appearance Clear Clear Urine Color Straw Straw Urine Odor Normal Normal # Voids 1 Incision: Yes healing Incision clean and dry: Yes Dressing: Yes clean Weight bearing status: full Neurological exam IM: Yes oriented X3, Yes neurovascular intact Extremities exam IM: Yes Foot pink and warm, Yes neurovascular intact - Allied Health Allied health notes reviewed: PT - Labs CBC & BMP: 09/23/18 05:39 09/16/18 11:28 Labs: Orthopedic Labs 09/16/18 11:29 PT 13.5 INR 1.0 09/23/18 09/16/18 05:39 11:28 Hgb 13.9 Hct 35.2 L 42.1
--- NOTE | 2018-09-23 07:57 | Discharge Summary ---
Ortho Discharge - TKA - Patient Instructions Diet: Regular Diet Activity: activity as tolerated, weight bearing as tolerated Total Knee Protocol: For Total Knee: Start ROM TJ with stationary bike or rocking chair. Work on gaining full extension of knee. Posterior dislocation precautions provided. Hip abductor strengthening and gait training instructions provided. Apply Cryocuff as instructed. Dressing Care: May shower in 2 days Patient Education: Total Knee Replacement (DC) - Follow Up Plan Follow Up Appointments: Aaron Lobo PA-C [Physician Service Car Operator] - 10/07/18 10:00 am Disposition: Hospice - Home Prognosis: Fair Rehab Potential: Good I certify that the patient requires SNF services: No Overall status at discharge: patient is progressing back to baseline - Orders For Discharge Prescriptions: oxyCODONE/APAP [Percocet 5-325 mg] 1 - 2 tab PO Q4H PRN #20 tab PRN Reason: Pain Promethazine [Phenergan] 25 mg PO Q4-6HP PRN #30 tab PRN Reason: Nausea
[2018-09-25] MEDS ORDERED: ERGOCALCIFEROL (VITAMIN D2) 50,000 UNIT CAPSULE PO SCH (09:00)
== END 2018-09-23 11:30 | disposition hospice, home (50) | DRG 470 ==
LOC: MEDSUR 08:48
PROVIDERS: ADMIT Orthopaedic Surgery; ATTEND Orthopaedic Surgery